=== PATIENT | female | born 1965 | race Hispanic/Latino ===

== ENCOUNTER → 2019-07-28 | Outpatient (CLI) | payer OTHER ==
[~2019-07-28] MED LIST: AMLODIPINE BESYL5 MG PO; GLYBURIDE5 MG PO; METFORMIN HCL850 MG PO; OMEPRAZOLE40 MG PO; PAROXETINE HCL20 MG PO
[2019-07-28 15:04] LABS: BASOPHILS % 0.1 % (0.0-1.0); EOSINOPHILS # (AUTO) 0.2 (0.0-0.4); EOSINOPHILS % 3.5 % (0.0-6.0); HEMATOCRIT 38.6 % (34.2-44.1); HEMOGLOBIN 13.8 g/dL (12.0-16.0); LYMPHOCYTES # (AUTO) 1.9 (1.0-3.2); LYMPHOCYTES % 27.7 % (18.0-39.1); MEAN CORPUSCULAR HEMOGLOBIN 30.7 pg (28-32); MEAN CORPUSCULAR HGB CONC 35.8 g/dL (31-35); MONOCYTES # (AUTO) 0.4 (0.2-0.8); NEUTROPHILS # (AUTO) 4.3 (2.1-6.9); NEUTROPHILS % 62.4 % (38.7-80.0); PLATELET COUNT 193 x10e3/uL (140-360); RED BLOOD COUNT 4.49 x10e6/uL (3.6-5.1); RED CELL DISTRIBUTION WIDTH 12.3 % (11.7-14.4)
== END ==
LOC: RAD 05:00 → EDSTATUS 07-30 10:30
PROVIDERS: ATTEND Internal Medicine Gastroenterology
DX: Z12.11 Encounter for screening for malignant neoplasm of colon (principal); Z71.3 Dietary counseling and surveillance
CPT/HCPCS: 36415; 85025; 93005

== ENCOUNTER → 2024-04-23 | Outpatient (REF) | payer BC | LOC: RAD 10:03 | PROVIDERS: ATTEND Family Medicine | DX: M25.561 Pain in right knee (principal) ==